=== PATIENT | male | born 1960 | race Caucasian/White ===

== ENCOUNTER 2016-04-26 01:34 | Observation (INO) | payer BC, OTHER ==
[2016-04-27] MEDS ORDERED: NITROSTAT0.4 MG SL (08:02)
[2016-04-27] MEDS ORDERED: ASPIR 8181 MG PO (08:02)
[2016-04-27] MEDS ORDERED: PAXIL20 MG PO (08:03)
[2016-04-27] MEDS ORDERED: VISTARIL50 MG PO (08:03)
== END 2016-04-26 18:05 | disposition home or self-care (01) ==
LOC: ER 01:34 → MED 07:12
PROVIDERS: ADMIT Internal Medicine
DX: R07.9 Chest pain, unspecified (principal); I16.0 Hypertensive urgency; N17.9 Acute kidney failure, unspecified; D72.829 Elevated white blood cell count, unspecified; F41.9 Anxiety disorder, unspecified; F17.210 Nicotine dependence, cigarettes, uncomplicated; Z79.82 Long term (current) use of aspirin; Z79.899 Other long term (current) drug therapy; Z82.49 Family history of ischemic heart disease and other diseases of the circulatory system; Z95.5 Presence of coronary angioplasty implant and graft
CPT/HCPCS: 36415; 93306; 96374; 96376; G0378; J2060